=== PATIENT | female | born 1990 | race Caucasian/White ===

== ENCOUNTER 2018-01-29 09:57 | Inpatient (IN) | payer OTHER ==
[~2018-01-29] VITALS: Ht 172.7 cm; Wt 73.1 kg
[~2018-01-29 09:57] MED LIST: CEFAZOLIN 1,000 MG ONE; EPHEDRINE 50 MG/ML, 1ML ONE; FENTANYL PF 100 MCG/2ML ONE; IBUP-1222 PO; OXYC-302 PO
[2018-01-29] MEDS ORDERED: OXYTOCIN 30U/ 0.9% NaCL 500ML 500 ML IV SCH (10:01)
[2018-01-29 10:18] VITALS: BP 100/61
[2018-01-29 10:19] LABS: BASOPHILS # (AUTO) 0.08 x10^3/uL (0-0.1); BASOPHILS % (AUTO) 1 % (0-1); EOSINOPHILS # (AUTO) 0.04 x10^3/uL (0-0.4); EOSINOPHILS % (AUTO) 0 % (1-7); LYMPHOCYTES # (AUTO) 2.11 x10^3/uL (1-3.4); LYMPHOCYTES % (AUTO) 23 % (22-44); MD NO; MEAN CORPUSCULAR HEMOGLOBIN 32.1 pg (27.0-34.8); MEAN CORPUSCULAR HGB CONC 34.7 g/dL (32.4-35.8); MEAN CORPUSCULAR VOLUME 92.6 fL (80-100); MEAN PLATELET VOLUME 8.3 fL (7.4-10.4); MONOCYTES # (AUTO) 0.81 x10^3/uL (0.2-0.8); MONOCYTES % (AUTO) 9 % (2-9); NEUTROPHILS # (AUTO) 6.28 x10^3/uL (1.8-6.8); NEUTROPHILS % (AUTO) 67 % (42-75); PLATELET COUNT 287 x10^3/uL (130-400); RED BLOOD COUNT 3.44 x10^6/uL (3.82-5.3)
[2018-01-29] MEDS ORDERED: NEWBORN KIT ONE (10:24)
[2018-01-29] MEDS ORDERED: SODIUM CITRATE/CITRIC ACID 30 ML UDC ONE (10:24)
[2018-01-29] MEDS ORDERED: OXYTOCIN 30U/ 0.9% NaCL 500ML 500 ML ONE (10:24)
[2018-01-29] MEDS ORDERED: METOCLOPRAMIDE 5 MG/ML, 2ML ONE (10:24)
[2018-01-29] MEDS ORDERED: SODIUM CITRATE/CITRIC ACID 30 ML UDC PO ONE (10:30)
[2018-01-29] MEDS ORDERED: METOCLOPRAMIDE 5 MG/ML, 2ML IV ONE (10:30)
[2018-01-29] MEDS ORDERED: LACTATED RINGERS 1,000 ML IVBOLUS ONE (10:30)
[2018-01-29] MEDS: LACTATED RINGERS 1,000 ML IV SCH ×6 (11:17→22:21)
[2018-01-29] MEDS ORDERED: HYDROmorphone 2 MG/ML, 1ML ONE (11:58)
[2018-01-29] MEDS ORDERED: FENTANYL PF 100 MCG/2ML ONE (11:58)
[2018-01-29] MEDS ORDERED: OXYTOCIN 10 UNITS/ML, 1ML ONE (11:58)
[2018-01-29] MEDS ORDERED: CEFAZOLIN 1,000 MG ONE (11:58)
[2018-01-29] MEDS: OXYTOCIN 30U/ 0.9% NaCL 500ML 500 ML IV SCH ×2 (12:21→22:21)
[2018-01-29] MEDS ORDERED: SIMETHICONE 80 MG CHEW TAB PO PRN (12:30)
[2018-01-29] MEDS ORDERED: morphine SULFATE 10 MG/ML, 1ML IVPush PRN (12:30)
[2018-01-29] MEDS ORDERED: MISOPROSTOL 200 MCG TABLET PR PRN (12:30)
[2018-01-29] MEDS ORDERED: CALCIUM CARBONATE 500 MG TAB.CHEW PO PRN (12:30)
[2018-01-29] MEDS ORDERED: ONDANSETRON 2MG/ML, 2ML IV PRN (12:30)
[2018-01-29] MEDS ORDERED: DIPH,PERTUSS(ACELL),TET VAC/PF NC IM-VACC PRN (12:30)
[2018-01-29] MEDS ORDERED: MEASLES,MUMPS&RUBELLA VACC/PF 0.5 ML SQ-VACC PRN (12:30)
[2018-01-29] MEDS ORDERED: RHOGAM FROM BLOOD BANK 1 NOTE EA IM/IV ONE (12:30)
[2018-01-29] MEDS ORDERED: EPHEDRINE 50 MG/ML, 1ML ONE (12:51)
[2018-01-29] MEDS ORDERED: KETOROLAC 30 MG/1 ML ONE (14:23)
[2018-01-29] MEDS: KETOROLAC 30 MG/1 ML IV SCH ×2 (14:24→20:31)
[2018-01-29 15:52] VITALS: BP 120/75
[2018-01-29] MEDS: OXYcodone/APAP 5/325MG TABLET PO PRN ×2 (18:43→19:45)
[2018-01-29 19:30] VITALS: BP 126/78
[2018-01-29] MEDS: DOCUSATE 100 MG CAPSULE PO PRN (19:45)
[2018-01-29 21:24] LABS: BASOPHILS # (AUTO) 0.09 x10^3/uL (0-0.1); BASOPHILS % (AUTO) 1 % (0-1); EOSINOPHILS # (AUTO) 0.02 x10^3/uL (0-0.4); EOSINOPHILS % (AUTO) 0 % (1-7); LYMPHOCYTES # (AUTO) 2.63 x10^3/uL (1-3.4); LYMPHOCYTES % (AUTO) 21 % (22-44); MD NO; MEAN CORPUSCULAR HEMOGLOBIN 31.6 pg (27.0-34.8); MEAN CORPUSCULAR VOLUME 92.8 fL (80-100); MEAN PLATELET VOLUME 8.4 fL (7.4-10.4); MONOCYTES # (AUTO) 0.88 x10^3/uL (0.2-0.8); MONOCYTES % (AUTO) 7 % (2-9); NEUTROPHILS # (AUTO) 9.13 x10^3/uL (1.8-6.8); NEUTROPHILS % (AUTO) 72 % (42-75); PLATELET COUNT 232 x10^3/uL (130-400); RED BLOOD COUNT 3.02 x10^6/uL (3.82-5.3)
[2018-01-30] MEDS: OXYcodone IR 5MG TABLET PO PRN ×4 (00:14→21:13)
[2018-01-30 00:15] VITALS: BP 104/61
[2018-01-30] MEDS: KETOROLAC 30 MG/1 ML IV SCH ×4 (02:14→21:13)
[2018-01-30 04:14] VITALS: BP 107/69
[2018-01-30] MEDS: LACTATED RINGERS 1,000 ML IV SCH ×5 (04:21→20:21)
[2018-01-30 06:50] VITALS: BP 95/56
[2018-01-30] MEDS: OXYTOCIN 30U/ 0.9% NaCL 500ML 500 ML IV SCH ×2 (08:21→18:21)
[2018-01-30] MEDS: PRENATAL VIT/IRON/FA 1 EACH TABLET PO SCH (08:26)
[2018-01-30] MEDS: DOCUSATE 100 MG CAPSULE PO PRN ×2 (08:26→21:13)
[2018-01-30 20:24] VITALS: BP 107/70
[2018-01-31] MEDS: OXYcodone IR 5MG TABLET PO PRN ×2 (02:38→10:14)
[2018-01-31] MEDS: KETOROLAC 30 MG/1 ML IV SCH (02:38)
[2018-01-31] MEDS: LACTATED RINGERS 1,000 ML IV SCH ×2 (04:21)
[2018-01-31] MEDS: OXYTOCIN 30U/ 0.9% NaCL 500ML 500 ML IV SCH (04:21)
[2018-01-31 07:00] VITALS: BP 105/63
[2018-01-31] MEDS ORDERED: IBUPROFEN 600 MG TABLET ONE (07:48)
[2018-01-31] MEDS: DOCUSATE 100 MG CAPSULE PO PRN (08:09)
[2018-01-31] MEDS: PRENATAL VIT/IRON/FA 1 EACH TABLET PO SCH (08:09)
[2018-01-31] MEDS ORDERED: OXYC-302 PO (09:55)
[2018-01-31] MEDS ORDERED: IBUPROFEN 600 MG TABLET PO PRN (12:30)
== END 2018-01-31 11:48 | disposition home or self-care (01) | DRG 765 ==
LOC: LDIP 09:57 → 2NW 15:40
PROVIDERS: ADMIT Obstetrics & Gynecology Gynecology; ATTEND Obstetrics & Gynecology Gynecology
PROC: 10D00Z1 Extraction of Products of Conception, Low, Open Approach (ICD-10-PCS; principal; 2018-01-29)
DX: O34.211 Maternal care for low transverse scar from previous cesarean delivery (principal); O36.5930 Maternal care for other known or suspected poor fetal growth, third trimester, not applicable or unspecified; Z37.0 Single live birth; Z82.3 Family history of stroke; Z3A.38 38 weeks gestation of pregnancy
CPT/HCPCS: 36415; 82803; 85025; 86850; 86870; 86900; 86922; 86923; J0690; J1170; J1885; J3010; J2590; J2765; J7120